=== PATIENT | female | born 1995 | race Two or more races ===

== ENCOUNTER 2020-09-12 16:32 | Emergency (ER) | payer MEDICARE ==
[~2020-09-12] VITALS: Ht 149.9 cm; Wt 45.4 kg
[2020-09-12 16:58] VITALS: BP 100/60
== END 2020-09-12 19:50 | disposition home or self-care (01) ==
LOC: ER 16:32
DX: J20.9 Acute bronchitis, unspecified (principal); F17.210 Nicotine dependence, cigarettes, uncomplicated; Z20.828 Contact with and (suspected) exposure to other viral communicable diseases
CPT/HCPCS: 36415; 71045; 87426